=== PATIENT | female | born 1975 | race Caucasian/White ===

== ENCOUNTER → 2022-07-04 | Outpatient (CLI) | payer MEDICAID, SELFPAY ==
--- NOTE | 2022-07-04 | BRBX_PTH ---
PATIENT: JESSICA MORGAN LOC: [facility] U#:[id number] AGE/SX: 46/F ROOM: RE07/04/[address]: Dr. Tiffanie Onofre MD : 1975 BED: DIS: 07/04/2022 SPEC #: [id number] RECD: 07/04/22 13:35 STATUS: JASMIN REEufemia #: [id number] LUCA: 07/04/22 00:[address]: Tiffanie Onofre DEPT: SURGICAL PATHOLOGY RECD BY: Johnie Ricci ENTERED: 07/04/22 13:35 SP TYPE: BREAST BX OTHR DR: Dr. Ceci Kevin DO Tissues: Right breast, NOS Procedures: Surgery Specimen Level IV HEADER OPERATION: Right breast stereotactic biopsy PRE-OP DIAGNOSIS: Right breast calcifications 12 o?clock mid depth TISSUE SUBMITTED: Right breast core tissue ISCHEMIC TIME: 1 minute FIXATION TIME: 6.5 hours MICROSCOPIC DIAGNOSIS Right breast, calcifications 12 o?clock mid depth, stereotactic core biopsy: Fibrocystic changes, adenosis and moderate intraductal hyperplasia without atypia. Frequent microcalcifications. Negative for malignancy. See comment. BAKARI:julian 07/05/2022 COMMENT Correlation with clinical, radiologic findings and appropriate follow up are necessary. MICROSCOPIC DESCRIPTION Slides are reviewed. GROSS DESCRIPTION Received in fixative is one container labeled with the patient's name and designated right breast. The specimen consists of multiple elongated fragments of sen-yellow fibroadipose tissue that in aggregate measure 3.0 x 2.5 x 0.3 cm. The entire specimen is submitted in one cassette. / BAKARI:julian 07/04/2022 TC:5 CPT: 06711
--- NOTE | 2022-07-05 14:43 | OP.PCM_ITS ---
Report of Operation Date of Procedure: 07/04/22 Pre-Operative Diagnosis: abnormal calcifications on right breast mammograms Post-Operative Diagnosis: same Surgery/Procedure Performed:: right stereotactic breast biopsy Surgeon: Tiffanie Onofre Type of Anesthesia: Local Specimen's removed: right breast tissue Estimated Blood Loss (mL): < 1ml Description of Procedure: After informed consent was given, the patient was brought into the Breast Biopsy suite. Appropriate time out protocol was followed. The patient was placed in the prone position on the stereotactic biopsy table. The patient?s right breast was then placed in the opening at the head of the biopsy table. A finishing machine tender compression mammogram was then obtained in the CC. The suspicious radiological lesion was thus identified. Stereo pictures of the lesion were then taken for XYZ coordinates. The Mammotome biopsy stylus was then positioned where it would be entering into the patient?s breast. The skin at this site was then cleansed with a surgical skin preparation. The skin and subcutaneous tissues at this site were then infiltrated with 1% xylocaine. A small skin incision was made with an 11 blade scalpel. The biopsy stylus was then positioned into the patient?s breast at the proper coordinates of depth. Using the Mammotome vacuum-assist device, several core samples of breast tissue were obtained. A specimen mammogram was the obtained. It revealed that the abnormal calcifications were within the specimen. I reviewed this personally and concluded that the tissue sampling was adequate. A hemostatic marker clip was then placed into the biopsy cavity and a finishing machine tender film revealed that it was properly deployed. The patient was then placed in the supine position and pressure was applied to the breast until no active bleeding was noted. Steristrips were applied to reapproximate the skin. A unilateral mammogram in the CC and MLO view were then taken which revealed that the marker clip was in the same area as the previous suspicious lesion. The patient tolerated the procedure well and was discharged from the Breast Biopsy suite in good condition. Complications none noted
== END | disposition home or self-care (01) ==
PROVIDERS: PCP Family Medicine; Visit Provider Surgery
DX: N60.21 Fibroadenosis of right breast (principal); N62 Hypertrophy of breast; R92.1 Mammographic calcification found on diagnostic imaging of breast
CPT/HCPCS: 19081; 88305; J7050

== ENCOUNTER 2024-01-14 07:00 | Emergency (ER) | payer SELFPAY ==
[2024-01-14 07:02] VITALS: BP 149/81; PULSE 79; RESP 18; TEMP 36.7; O2SAT 97; BMI 19.4
--- NOTE | 2024-01-14 07:30 | ED.VIS.DYS ---
HPI History of Present Illness Chief Complaint: Cold Sx Informant: patient Narrative Narrative: 14-year-old female history of COPD presenting to the emergency room with cough and congestion. Patient states about 2 weeks ago she began to have allergy-like symptoms that included rhinorrhea and slight cough. She states her mucus is thick and she has a raspy voice. She states she is coughing up small amounts of blood with her mucus now. She is out of her inhaler but has been using a nebulizer at home. This morning she had a nosebleed and states that her brain is swimming in her head with the pressure from her face. She denies any fever or sweats. She states that she was trying to come in to work today and figured she was close to emergency so she would come and be seen. Her primary care doctor does not know about her symptoms. She thought about calling to get an appointment but was closest to emergency. [facility] Medical History (Updated 01/14/24 @ 07:[address] Andres Rosales DO) Anxiety COPD (chronic obstructive pulmonary disease) Allergy/AdvReac Type Severity Reaction Status Date / Time Penicillins AdvReac Severe Anaphylaxis Verified 01/14/24 07:02 Social History Smoking Status: Current every day smoker tobacco type: cigarettes ROS ROS ED Constitutional Constitutional ED: Denies chills or weight loss Eyes Eyes: Denies change in vision or diplopia ENT ENT ED: Reports rhinorrhea and other Details: Facial pressure ; Denies ear pain or sore throat Cardiovascular Cardiovascular: Denies chest pain, orthopnea, palpitations or racing heartbeat Respiratory/Chest Respiratory/Chest: Reports cough, dyspnea and sputum; Denies orthopnea Gastrointestinal Gastrointestinal: Denies abdominal pain, diarrhea, nausea or vomiting Genitourinary Genitourinary ED: Denies dysuria, hematuria or urinary frequency Musculoskeletal Musculoskeletal: Denies arthralgias or myalgias Integumentary Denies abscess or rash Neurologic Neurologic: Denies headache(s) or weakness Psychiatric Psychiatric: Denies anxiety, depression, suicidal ideation or suicidal thoughts Endocrine Endocrinology: Denies polydipsia, polyphagia or polyuria Allergic/Immunologic Allergic/Immunologic ED: Denies mouth swelling, tongue swelling or urticaria EXAM Physical Exam Const Vital Signs: 01/14/24 07:02 01/14/24 07:06 01/14/24 07:51 Temperature 98.1 F Temperature Source Oral Pulse Rate 79 69 Respiratory Rate 18 16 Respiratory Effort Normal Respiratory Pattern Normal Blood Pressure 149/81 H Blood Pressure Mean 103 Pulse Ox 97 Oxygen Delivery Method Room Air Positive well nourished and well developed General Appearance ED: well developed and NAD HEENT Reports normocephalic, head/scalp atraumatic, TM's clear and moist mucous membranes HEENT Narrative: Mild turbinate edema Tympanic Membrane ED: Yes TM's clear Eyes PERRL and EOMs intact bilaterally Neck no lymphadenopathy, supple and no JVD Resp Auscultation: rhonchi and wheezes expiratory wheezes Cardio regular rate, regular rhythm and no murmurs GI normal to inspection, nondistended, normoactive bowel sounds and non-tender Palpation: soft Back/Spine no CVA tenderness and normal ROM Extremity normal to inspection General Extremety ED: Negative for edema General Extremity: Negative for edema Neuro oriented x3 and CN's II-XII intact bilaterally Sensorium / Orientation: alert Motor Exam: strength 5/5 throughout Psych mental status grossly normal Mood & Affect: Negative for depressed or tearful Skin no rashes or lesions noted and no wounds MDM MDM MDM Narrative Medical decision making narrative: Differential diagnosis includes but not limited to viral URI acute bronchitis with bronchospasm COPD exacerbation pneumonia pneumothorax pleural effusion malignancy My independent interpretation of the chest x-ray is no acute process. Patient received a DuoNeb and has improved aeration. Clinically I think the patient would benefit from prednisone a albuterol rescue inhaler continued nebulizers every 4 hours at home. I will also place her on doxycycline. Would recommend primary care follow-up if not improving return if worsening or concerns. Smoking cessation was encouraged. She is working on this cutting back to only 7 cigarettes/day. History & Record Review Discussion w/independent historian: Patient Radiography Diagnostic Testing: Clinical Impression(s) from Imaging Studies Chest X-Ray 01/14/24 07:35 IMPRESSION: Hyperinflated lungs may be consistent with COPD. No infiltrates. Electronically Signed: July Morataya MD at 8:02 EDT Reading Location ID and State: [facility] [place] / [place] Tel , Service support , Discharge Plan Triage Chief Complaint: Cold Sx ED Provider: Andres Rosales Dx/Rx/DC Orders Primary Care Provider: Ceci Kevin Referrals: Ceci Kevin DO [Primary Care Provider] - Print Language: French
--- NOTE | 2024-01-14 07:35 | RAD_ITS ---
INDICATION: COUGH, COPD EXAMINATION/TECHNIQUE: X-RAY - XR Chest 2 Views COMPARISON: No relevant prior comparison study available FINDINGS: LINES/DEVICES: None. LUNGS: Hyperinflated. No consolidation. No pneumothorax. MEDIASTINUM: Unremarkable. CARDIAC SILHOUETTE: Not enlarged. BONES AND SOFT TISSUES: No acute abnormalities. RAD/Chest PA and Lateral IMPRESSION: Hyperinflated lungs may be consistent with COPD. No infiltrates. Electronically Signed: July Morataya MD at 8:02 EDT ,
[2024-01-14] MEDS: Ipratropium/Albuterol Sulfate 3 ML AMPUL.NEB INHALATION (07:43)
[2024-01-14 07:51] VITALS: PULSE 69; RESP 16
[2024-01-14 08:25] VITALS: BP 103/68; PULSE 78; RESP 18; TEMP 36.6; O2SAT 98
== END 2024-01-14 08:40 | disposition home or self-care (01) ==
PROVIDERS: Emergency Provider Emergency Medicine; PCP Family Medicine; Visit Provider Emergency Medicine
DX: J00 Acute nasopharyngitis [common cold] (principal); J44.9 Chronic obstructive pulmonary disease, unspecified; F17.210 Nicotine dependence, cigarettes, uncomplicated; J34.89 Other specified disorders of nose and nasal sinuses; R05.9 Cough, unspecified; R06.00 Dyspnea, unspecified
CPT/HCPCS: 71046; 94640; 99282